=== PATIENT | male | born 1965 | race Caucasian/White ===

== ENCOUNTER 2016-10-10 18:05 | Inpatient (IN) | payer MEDICAID ==
[~2016-10-10] VITALS: Ht 180.3 cm; Wt 100.0 kg
[~2016-10-10 18:05] MED LIST: ESOM40CA PO; HYDR-882 PO; LEVO25TA2 PO; LISI5TAB7 PO; METO25TA35 PO
[2016-10-10] MEDS ORDERED: SODIUM CHLORIDE FLUSH 10ML SYR IVF ONE (19:00)
[2016-10-10] MEDS ORDERED: MORPHINE SULFATE 4 MG/ML, 1ML IVPush ONE (19:00)
[2016-10-10 19:12] LABS: HEMATOCRIT 38.4 % (39.2-51.8); HEMOGLOBIN 12.4 g/dL (13.7-18.0); WHITE BLOOD COUNT 10.8 x10^3/uL (3.4-10)
[2016-10-10 19:24] LABS: BLOOD UREA NITROGEN 11 mg/dL (7-18)
[2016-10-10 19:28] LABS: ASPARTATE AMINO TRANSFERASE 81 U/L (15-37)
[2016-10-10] MEDS ORDERED: POTASSIUM CHLORIDE 20 MEQ TAB.ER.PRT PO ONE (19:30)
[2016-10-10] MEDS ORDERED: POTASSIUM CHLORIDE 40 MEQ in SODIUM CHLORIDE 0.9% 500 ML IV ONE (19:30)
[2016-10-10] MEDS: MORPHINE SULFATE 4 MG/ML, 1ML IVPush PRN ×2 (20:50→23:05)
[2016-10-10] MEDS ORDERED: PANT20TA3 PO (22:13)
[2016-10-10] MEDS ORDERED: ONDANSETRON 2MG/ML, 2ML IVPush PRN (23:00)
[2016-10-10] MEDS ORDERED: DOCUSATE 100 MG CAPSULE PO PRN (23:00)
[2016-10-10] MEDS ORDERED: ENOXAPARIN 40 MG/0.4 ML SQ SCH (23:00)
[2016-10-10] MEDS ORDERED: INDOMETHACIN 50 MG CAPSULE PO ONE (23:00)
[2016-10-10] MEDS ORDERED: MAGNESIUM SULFATE PMX 2GM/50ML 50 ML IV ONE (23:00)
[2016-10-11] VITALS: BP 177/93
[2016-10-11] MEDS: LACTULOSE 10 GM/15 ML UDC PO SCH ×4 (01:02→20:01)
[2016-10-11] MEDS: HYDROmorphone 2 MG/ML, 1ML IVPush PRN ×4 (01:44→20:01)
[2016-10-11] MEDS: THIAMINE 100 MG, MVI ADULT 10 ML, FOLIC ACID 1 MG in D5%-0.9% NACL 1,000 ML IV SCH (01:45)
[2016-10-11 02:08] VITALS: BP 148/85
[2016-10-11 05:20] LABS: HEMATOCRIT 36.5 % (39.2-51.8); HEMOGLOBIN 11.9 g/dL (13.7-18.0); WHITE BLOOD COUNT 10.6 x10^3/uL (3.4-10)
[2016-10-11 05:27] LABS: BLOOD UREA NITROGEN 13 mg/dL (7-18)
[2016-10-11 05:38] LABS: ASPARTATE AMINO TRANSFERASE 74 U/L (15-37)
[2016-10-11] MEDS ORDERED: POTASSIUM CHLORIDE 40 MEQ in SODIUM CHLORIDE 0.9% 500 ML IV ONE (06:30)
[2016-10-11 07:23] VITALS: BP 136/87
[2016-10-11] MEDS: POTASSIUM CHLORIDE 20 MEQ PACKET PO SCH ×2 (08:00→09:34)
[2016-10-11] MEDS ORDERED: INDOMETHACIN 25 MG CAPSULE PO SCH (08:00)
[2016-10-11] MEDS ORDERED: MAGNESIUM SULFATE PMX 2GM/50ML 50 ML IV ONE ×2 (09:00→16:30)
[2016-10-11] MEDS: LISINOPRIL 5 MG TABLET PO SCH ×2 (09:35→12:31)
[2016-10-11] MEDS: PANTOPROZOLE 40MG TABLET PO SCH ×2 (09:35→12:31)
[2016-10-11] MEDS: METOPROLOL TARTRATE 25 MG TABLET PO SCH ×3 (09:35→20:01)
[2016-10-11] MEDS: LEVOTHYROXINE 25 MCG TABLET PO SCH ×2 (09:35→12:31)
[2016-10-11] MEDS ORDERED: methylPREDNISolone 4mg DOSE PACK PO SCH (11:00)
[2016-10-11 13:13] VITALS: BP 168/99
[2016-10-11] MEDS ORDERED: POTASSIUM CHLORIDE 20 MEQ TAB.ER.PRT PO SCH (17:00)
[2016-10-11] MEDS: OXYcodone IR 5MG TABLET PO PRN (17:11)
[2016-10-11 18:52] VITALS: BP 160/87
[2016-10-11] MEDS ORDERED: ONDANSETRON 2MG/ML, 2ML IVPush PRN (20:00)
[2016-10-11] MEDS: MAGNESIUM OXIDE 400 MG TABLET PO SCH (20:01)
[2016-10-12 01:32] VITALS: BP 139/88
[2016-10-12] MEDS: THIAMINE 100 MG, MVI ADULT 10 ML, FOLIC ACID 1 MG in D5%-0.9% NACL 1,000 ML IV SCH (02:08)
[2016-10-12 05:18] LABS: HEMATOCRIT 34.8 % (39.2-51.8); HEMOGLOBIN 11.2 g/dL (13.7-18.0); WHITE BLOOD COUNT 11.2 x10^3/uL (3.4-10)
[2016-10-12 05:38] LABS: ASPARTATE AMINO TRANSFERASE 61 U/L (15-37); BLOOD UREA NITROGEN 10 mg/dL (7-18)
[2016-10-12] MEDS: HYDROmorphone 2 MG/ML, 1ML IVPush PRN ×2 (06:03→10:07)
[2016-10-12 08:00] VITALS: BP 143/86
[2016-10-12] MEDS ORDERED: POTASSIUM CHLORIDE 40 MEQ in SODIUM CHLORIDE 0.9% 500 ML IV ONE (09:00)
[2016-10-12] MEDS: LACTULOSE 10 GM/15 ML UDC PO SCH (09:00)
[2016-10-12] MEDS: POLYETHYLENE GLYCOL 17 GM PACKET PO SCH ×2 (11:00→11:36)
[2016-10-12] MEDS: LEVOTHYROXINE 25 MCG TABLET PO SCH (11:36)
[2016-10-12] MEDS: PANTOPROZOLE 40MG TABLET PO SCH (11:36)
[2016-10-12] MEDS: LISINOPRIL 5 MG TABLET PO SCH (11:36)
[2016-10-12] MEDS: METOPROLOL TARTRATE 25 MG TABLET PO SCH (11:36)
[2016-10-12] MEDS: MAGNESIUM OXIDE 400 MG TABLET PO SCH (11:36)
[2016-10-12] MEDS: POTASSIUM CHLORIDE 20 MEQ TAB.ER.PRT PO SCH ×2 (11:37→17:13)
[2016-10-12 13:43] VITALS: BP 143/89
[2016-10-12] MEDS: OXYcodone IR 5MG TABLET PO PRN (14:37)
[2016-10-12 18:47] LABS: OCCBLD OBC PASS
[2016-10-12] MEDS ORDERED: ENOXAPARIN 40 MG/0.4 ML SQ SCH (23:00)
== END 2016-10-12 20:15 | disposition home or self-care (01) | DRG 554 ==
LOC: ED 19:15 → EDIP 22:29 → SUATTDRO 22:42 → 4EST 23:42 → 4WST 10-11 12:44
PROVIDERS: ADMIT Internal Medicine; ATTEND Internal Medicine
PROC: 0S9D3ZZ Drainage of Left Knee Joint, Percutaneous Approach (ICD-10-PCS; principal; 2016-10-10)
DX: M13.162 Monoarthritis, not elsewhere classified, left knee (principal); K22.2 Esophageal obstruction; I10 Essential (primary) hypertension; E03.9 Hypothyroidism, unspecified; E78.5 Hyperlipidemia, unspecified; E87.6 Hypokalemia; F10.10 Alcohol abuse, uncomplicated; K21.9 Gastro-esophageal reflux disease without esophagitis; K59.09 Other constipation; M10.00 Idiopathic gout, unspecified site; F17.220 Nicotine dependence, chewing tobacco, uncomplicated; G89.29 Other chronic pain; M25.462 Effusion, left knee; M54.5 Low back pain; M79.605 Pain in left leg; R26.2 Difficulty in walking, not elsewhere classified; R73.9 Hyperglycemia, unspecified
CPT/HCPCS: 36415; 74245; 80053; 82272; 82945; 83615; 83735; 84100; 84132; 84157; 84439; 84443; 84550; 85025; 85651; 85810; 86140; 87070; 87205; 89050; 89060; 93005; 96374; 96376; J1170; J1650; J2405; J3411; J3480; J7042; J7509; J3475; J7040

== ENCOUNTER 2016-10-12 22:25 | Emergency (ER) | payer MEDICAID ==
[~2016-10-12] VITALS: Ht 180.3 cm; Wt 95.5 kg
[~2016-10-12 22:25] MED LIST changes: +PANT20TA3 PO
[2016-10-12 22:27] VITALS: BP 157/122
[2016-10-12] MEDS ORDERED: KETOROLAC 30 MG/1 ML IM ONE (23:00)
[2016-10-12] MEDS ORDERED: POTASSIUM CHLORIDE 20 MEQ TAB.ER.PRT PO ONE (23:00)
== END 2016-10-13 00:09 | disposition home or self-care (01) ==
LOC: ED 22:49
DX: M13.10 Monoarthritis, not elsewhere classified, unspecified site (principal); M10.9 Gout, unspecified; I10 Essential (primary) hypertension; E03.9 Hypothyroidism, unspecified
CPT/HCPCS: 96372; 99283; J1885; J7512

== ENCOUNTER 2017-10-26 13:16 | Inpatient (IN) | payer MEDICAID ==
[~2017-10-26] VITALS: Ht 180.3 cm; Wt 85.2 kg
[2017-10-26] MEDS ORDERED: ATOR40TA78 PO (13:47)
[2017-10-26] MEDS ORDERED: SUCR1TAB PO (13:47)
[2017-10-26] MEDS ORDERED: LOSA50TA7 PO (13:47)
[2017-10-26] MEDS ORDERED: ALLO100T30 PO (13:47)
[2017-10-26] MEDS ORDERED: SODIUM CHLORIDE FLUSH 10ML SYR IVF ONE (14:00)
[2017-10-26 14:03] LABS: BASOPHILS # (AUTO) 0.03 x10^3/uL (0-0.1); BASOPHILS % (AUTO) 0 % (0-1); EOSINOPHILS # (AUTO) 0.11 x10^3/uL (0-0.4); EOSINOPHILS % (AUTO) 1 % (1-7); LYMPHOCYTES # (AUTO) 2.12 x10^3/uL (1-3.4); LYMPHOCYTES % (AUTO) 24 % (22-44); MD NO; MEAN CORPUSCULAR HEMOGLOBIN 26.6 pg (27.5-34.5); MEAN CORPUSCULAR HGB CONC 32.8 g/dL (33.2-36.2); MEAN CORPUSCULAR VOLUME 81.1 fL (81-97); MEAN PLATELET VOLUME 8.8 fL (7.4-10.4); MONOCYTES # (AUTO) 0.95 x10^3/uL (0.2-0.8); MONOCYTES % (AUTO) 11 % (2-9); NEUTROPHILS # (AUTO) 5.65 x10^3/uL (1.8-6.8); NEUTROPHILS % (AUTO) 64 % (42-75); PLATELET COUNT 197 x10^3/uL (130-400); RED BLOOD COUNT 4.37 x10^6/uL (4.38-5.82); RED CELL DISTRIBUTION WIDTH 21.9 % (9.4-14.8)
[2017-10-26 14:13] LABS: ALANINE AMINOTRANSFERASE 67 U/L (12-78); ALBUMIN 3.1 g/dL (3.4-5.0); ANION GAP 10 mmol/L (5-15); CALCIUM 7.4 mg/dL (8.5-10.1); CHLORIDE 101 mmol/L (98-107)
[2017-10-26 14:14] LABS: INTERNATIONAL NORMALIZED RATIO 1.03 (0.93-1.1); PROTHROMBIN TIME 10.7 Seconds (9.6-11.5)
[2017-10-26 14:18] LABS: ALKALINE PHOSPHATASE 251 U/L (45-117); BILIRUBIN,TOTAL 1.3 mg/dL (0.2-1.0); TOTAL PROTEIN 6.8 g/dL (6.4-8.2); TROPONIN I < 0.015 ng/mL (0.000-0.045)
[2017-10-26] MEDS ORDERED: SODIUM CHLORIDE 0.9% 1,000 ML IV ONE ×2 (14:57→15:13)
[2017-10-26] MEDS ORDERED: SODIUM CHLORIDE 0.9% 1,000ML IVBOLUS ONE (15:00)
[2017-10-26] MEDS ORDERED: SODIUM CHLORIDE FLUSH 10ML SYR IVF PRN (15:30)
[2017-10-26] MEDS ORDERED: NS + 20MEQ KCL 1,000 ML IV SCH (16:30)
[2017-10-26] MEDS ORDERED: MAGNESIUM SULFATE PMX 2GM/50ML 50 ML IV ONE (16:30)
[2017-10-26] MEDS ORDERED: LORazepam 1MG TABLET PO PRN (16:30)
[2017-10-26] MEDS: NICOTINE 7 MG/24 HR PATCH.TD24 TD SCH (16:30)
[2017-10-26] MEDS ORDERED: POTASSIUM CHLORIDE 20 MEQ TAB.ER.PRT PO ONE (16:30)
[2017-10-26] MEDS ORDERED: CALCIUM CARBONATE 500 MG TAB.CHEW PO PRN (16:30)
[2017-10-26 17:08] VITALS: BP 137/85
[2017-10-26 17:48] LABS: CULTURE INDICATED? YES; MICROSCOPIC INDICATED
[2017-10-26 18:08] LABS: HEMOGLOBIN A1C 5.1 % (4.2-6.3)
[2017-10-26] MEDS: HEPARIN 5,000 UNITS/ML, 1ML SQ SCH (18:14)
[2017-10-26] MEDS ORDERED: MAGNESIUM SULFATE PMX 4GM/100M 100 ML IV ONE (18:30)
[2017-10-26] MEDS: ALLOPURINOL 100 MG TABLET PO SCH (20:12)
[2017-10-26] MEDS: METOPROLOL TARTRATE 25 MG TABLET PO SCH (20:13)
[2017-10-26] MEDS: ACETAMINOPHEN 325 MG TABLET PO PRN (20:13)
[2017-10-26 20:15] VITALS: BP 137/91
[2017-10-26] MEDS ORDERED: ATORVASTATIN 40 MG TABLET PO SCH (21:00)
[2017-10-27 01:29] VITALS: BP 148/93
[2017-10-27] MEDS: HEPARIN 5,000 UNITS/ML, 1ML SQ SCH ×4 (01:50→20:11)
[2017-10-27 04:39] LABS: MEAN CORPUSCULAR HGB CONC 32.6 g/dL (33.2-36.2); MEAN CORPUSCULAR VOLUME 79.7 fL (81-97); MEAN PLATELET VOLUME 8.7 fL (7.4-10.4); PLATELET COUNT 145 x10^3/uL (130-400); RED BLOOD COUNT 3.57 x10^6/uL (4.38-5.82); RED CELL DISTRIBUTION WIDTH 22.3 % (9.4-14.8)
[2017-10-27 04:52] LABS: ALBUMIN 2.6 g/dL (3.4-5.0); ANION GAP 9 mmol/L (5-15); CALCIUM 6.8 mg/dL (8.5-10.1); CHLORIDE 104 mmol/L (98-107)
[2017-10-27 05:17] LABS: ALANINE AMINOTRANSFERASE 53 U/L (12-78); ALKALINE PHOSPHATASE 205 U/L (45-117); CHOL/HDL RATIO 4.3; CHOLESTEROL, TOTAL 113 mg/dL (140-239); CREATININE 1.91 mg/dL (0.7-1.3); FOLATE LEVEL 5.1 ng/mL (3.1-17.5); HDL CHOL % 23 % (26-37); HDL CHOLESTEROL (DIRECT) 26 mg/dL (40-60); LDL CHOLESTEROL,CALCULATED 60 mg/dL (54-169); LDL/HDL RATIO 2.3 (0.5-3.0); TOTAL PROTEIN 5.5 g/dL (6.4-8.2); TRIGLYCERIDES 137 mg/dL (50-200); VLDL CHOLESTEROL 27 mg/dL (0-25)
[2017-10-27 06:05] LABS: BASOPHILS # (AUTO) 0.04 x10^3/uL (0-0.1); BASOPHILS % (AUTO) 1 % (0-1); EOSINOPHILS % (AUTO) 2 % (1-7); LYMPHOCYTES # (AUTO) 1.87 x10^3/uL (1-3.4); LYMPHOCYTES % (AUTO) 37 % (22-44); MD SCAN; MONOCYTES # (AUTO) 0.61 x10^3/uL (0.2-0.8); MONOCYTES % (AUTO) 12 % (2-9); NEUTROPHILS # (AUTO) 2.45 x10^3/uL (1.8-6.8); NEUTROPHILS % (AUTO) 48 % (42-75)
[2017-10-27 07:09] VITALS: BP 157/99
[2017-10-27] MEDS ORDERED: POTASSIUM CHLORIDE 20 MEQ TAB.ER.PRT PO ONE (07:30)
[2017-10-27] MEDS: FOLIC ACID 1 MG TABLET PO SCH (07:49)
[2017-10-27] MEDS: THIAMINE 100MG TABLET PO SCH (07:49)
[2017-10-27] MEDS: MULTIVITAMIN 1 TABLET PO SCH (07:49)
[2017-10-27] MEDS: ALLOPURINOL 100 MG TABLET PO SCH ×2 (07:50→20:11)
[2017-10-27] MEDS: PANTOPRAZOLE 20MG TABLET PO SCH (07:50)
[2017-10-27] MEDS: METOPROLOL TARTRATE 25 MG TABLET PO SCH ×2 (07:50→19:14)
[2017-10-27] MEDS: NS + 40MEQ KCL 1,000 ML IV SCH ×2 (09:39→20:11)
[2017-10-27 13:15] VITALS: BP 135/83
[2017-10-27] MEDS: NICOTINE 7 MG/24 HR PATCH.TD24 TD SCH (16:30)
[2017-10-27 19:01] VITALS: BP_SYST 176; BP_SYST 189; BP_DIAS 101; BP_DIAS 111
[2017-10-27] MEDS: ACETAMINOPHEN 325 MG TABLET PO PRN (20:11)
[2017-10-27 20:15] VITALS: BP 151/80
[2017-10-27 21:03] LABS: OCCULT BLOOD NEGATIVE (NEGATIVE)
[2017-10-28 03:31] VITALS: BP 148/85
[2017-10-28 05:25] LABS: BASOPHILS # (AUTO) 0.05 x10^3/uL (0-0.1); BASOPHILS % (AUTO) 1 % (0-1); EOSINOPHILS # (AUTO) 0.12 x10^3/uL (0-0.4); EOSINOPHILS % (AUTO) 3 % (1-7); LYMPHOCYTES % (AUTO) 44 % (22-44); MD NO; MEAN CORPUSCULAR HEMOGLOBIN 26.9 pg (27.5-34.5); MEAN CORPUSCULAR HGB CONC 32.7 g/dL (33.2-36.2); MEAN CORPUSCULAR VOLUME 82.1 fL (81-97); MEAN PLATELET VOLUME 10.1 fL (7.4-10.4); MONOCYTES # (AUTO) 0.51 x10^3/uL (0.2-0.8); MONOCYTES % (AUTO) 12 % (2-9); NEUTROPHILS # (AUTO) 1.79 x10^3/uL (1.8-6.8); NEUTROPHILS % (AUTO) 41 % (42-75); PLATELET COUNT 133 x10^3/uL (130-400); RED BLOOD COUNT 3.34 x10^6/uL (4.38-5.82); RED CELL DISTRIBUTION WIDTH 22.1 % (9.4-14.8)
[2017-10-28 05:28] LABS: CHLORIDE 113 mmol/L (98-107)
[2017-10-28 05:38] LABS: ANION GAP 9 mmol/L (5-15); CALCIUM 6.8 mg/dL (8.5-10.1); CREATININE 1.42 mg/dL (0.7-1.3)
[2017-10-28 05:39] LABS: % IRON SATURATION 57 % (20-55); ALANINE AMINOTRANSFERASE 47 U/L (12-78); ALBUMIN 2.5 g/dL (3.4-5.0); ALKALINE PHOSPHATASE 191 U/L (45-117); BILIRUBIN,TOTAL 0.9 mg/dL (0.2-1.0); IRON LEVEL 153 mcg/dL (65-175); TOTAL IRON BINDING CAPACITY 268 mcg/dL (250-450); TOTAL PROTEIN 5.5 g/dL (6.4-8.2); TRANSFERRIN 224 mg/dL (200-360)
[2017-10-28] MEDS: NS + 40MEQ KCL 1,000 ML IV SCH (06:14)
[2017-10-28] MEDS ORDERED: POTASSIUM CHLORIDE 20 MEQ TAB.ER.PRT PO ONE (07:30)
[2017-10-28] MEDS: METOPROLOL TARTRATE 25 MG TABLET PO SCH ×2 (07:51→19:27)
[2017-10-28] MEDS: THIAMINE 100MG TABLET PO SCH (07:51)
[2017-10-28] MEDS: MULTIVITAMIN 1 TABLET PO SCH (07:51)
[2017-10-28] MEDS: PANTOPRAZOLE 20MG TABLET PO SCH (07:51)
[2017-10-28] MEDS: ALLOPURINOL 100 MG TABLET PO SCH ×2 (07:51→19:27)
[2017-10-28] MEDS: FOLIC ACID 1 MG TABLET PO SCH (07:52)
[2017-10-28 07:59] VITALS: BP 176/104
[2017-10-28] MEDS: HEPARIN 5,000 UNITS/ML, 1ML SQ SCH ×2 (10:00→17:16)
[2017-10-28] MEDS ORDERED: BUPIVACAINE/PF-EPI 0.5% 1:200K ONE (11:58)
[2017-10-28] MEDS ORDERED: MIDAZOLAM 1 MG/ML, 2ML ONE (12:14)
[2017-10-28] MEDS ORDERED: FENTANYL PF 250 MCG/5ML ONE (12:14)
[2017-10-28] MEDS ORDERED: BUPIVACAINE/PF-EPI 0.5% 1:200K INFIL ONE ×2 (12:46→13:05)
[2017-10-28] MEDS ORDERED: CEFAZOLIN 1,000 MG ONE (13:20)
[2017-10-28] MEDS ORDERED: NEOSTIGMINE 1 MG/ML, 10ML ONE (13:20)
[2017-10-28] MEDS ORDERED: GLYCOPYRROLATE 0.2MG/1ML, 5ML ONE (13:20)
[2017-10-28] MEDS ORDERED: SUCCINYLCHOLINE 20 MG/ML, 10ML ONE (13:20)
[2017-10-28] MEDS ORDERED: PROPOFOL 10 MG/ML, 20ML ONE (13:20)
[2017-10-28] MEDS ORDERED: ONDANSETRON 2MG/ML, 2ML ONE (13:20)
[2017-10-28] MEDS ORDERED: DEXAMETHASONE 4 MG/ML, 1ML ONE (13:20)
[2017-10-28] MEDS ORDERED: ROCURONIUM 10MG/ML,5ML ONE (13:20)
[2017-10-28] MEDS ORDERED: ONDANSETRON 2MG/ML, 2ML IV PRN (13:30)
[2017-10-28] MEDS ORDERED: LABETALOL 5MG/ML, 20ML IV PRN (13:30)
[2017-10-28] MEDS ORDERED: OXYcodone 5 MG/5 ML ORAL.SOL UDC ONE (13:30)
[2017-10-28] MEDS ORDERED: ONDANSETRON ODT 8 MG PO PRN (13:30)
[2017-10-28] MEDS ORDERED: PROMETHAZINE 25 MG/ML, 1ML IV PRN (13:30)
[2017-10-28] MEDS ORDERED: OXYcodone 5 MG/5 ML ORAL.SOL UDC PO PRN (13:30)
[2017-10-28] MEDS ORDERED: hydrALAzine 20 MG/ML, 1ML IV PRN ×2 (13:30→14:00)
[2017-10-28] MEDS ORDERED: HYDROmorphone 1 MG/ML, 1ML IV PRN ×2 (13:30→15:00)
[2017-10-28] MEDS ORDERED: FENTANYL PF 100 MCG/2ML ONE (13:30)
[2017-10-28] MEDS: FENTANYL PF 100 MCG/2ML IV PRN ×2 (13:35→13:45)
[2017-10-28] MEDS ORDERED: hydrALAzine 20 MG/ML, 1ML ONE (13:41)
[2017-10-28 14:00] VITALS: BP 160/100
[2017-10-28] MEDS: LOSARTAN 50MG TABLET PO SCH (15:26)
[2017-10-28] MEDS: HYDROcodone/APAP 5/325 TABLET PO PRN ×2 (15:26→22:17)
[2017-10-28] MEDS: NICOTINE 7 MG/24 HR PATCH.TD24 TD SCH (15:41)
[2017-10-28] MEDS: OXYcodone/APAP 5/325MG TABLET PO PRN (19:27)
[2017-10-28 20:40] VITALS: BP 147/89
[2017-10-29] MEDS: HEPARIN 5,000 UNITS/ML, 1ML SQ SCH ×2 (01:38→07:29)
[2017-10-29] MEDS: OXYcodone/APAP 5/325MG TABLET PO PRN ×2 (02:05→07:28)
[2017-10-29 03:49] VITALS: BP 146/83
[2017-10-29 04:54] LABS: MEAN CORPUSCULAR HEMOGLOBIN 26.3 pg (27.5-34.5); MEAN CORPUSCULAR VOLUME 82.4 fL (81-97); MEAN PLATELET VOLUME 9.5 fL (7.4-10.4); PLATELET COUNT 195 x10^3/uL (130-400); RED BLOOD COUNT 3.58 x10^6/uL (4.38-5.82); RED CELL DISTRIBUTION WIDTH 22.5 % (9.4-14.8)
[2017-10-29 05:03] LABS: CHLORIDE 108 mmol/L (98-107)
[2017-10-29 05:15] LABS: ALANINE AMINOTRANSFERASE 53 U/L (12-78); ALKALINE PHOSPHATASE 197 U/L (45-117); ANION GAP 10 mmol/L (5-15); BILIRUBIN,TOTAL 0.9 mg/dL (0.2-1.0); CALCIUM 7.6 mg/dL (8.5-10.1); TOTAL PROTEIN 6.3 g/dL (6.4-8.2)
[2017-10-29 05:44] LABS: BASOPHILS # (AUTO) 0.05 x10^3/uL (0-0.1); BASOPHILS % (AUTO) 1 % (0-1); EOSINOPHILS % (AUTO) 0 % (1-7); LYMPHOCYTES # (AUTO) 1.58 x10^3/uL (1-3.4); LYMPHOCYTES % (AUTO) 19 % (22-44); MD SCAN; MONOCYTES # (AUTO) 0.77 x10^3/uL (0.2-0.8); MONOCYTES % (AUTO) 9 % (2-9); NEUTROPHILS # (AUTO) 5.84 x10^3/uL (1.8-6.8); NEUTROPHILS % (AUTO) 71 % (42-75)
[2017-10-29] MEDS: METOPROLOL TARTRATE 25 MG TABLET PO SCH (07:29)
[2017-10-29] MEDS: THIAMINE 100MG TABLET PO SCH (07:29)
[2017-10-29] MEDS: ALLOPURINOL 100 MG TABLET PO SCH (07:29)
[2017-10-29] MEDS: MULTIVITAMIN 1 TABLET PO SCH (07:29)
[2017-10-29] MEDS: PANTOPRAZOLE 20MG TABLET PO SCH (07:29)
[2017-10-29] MEDS: FOLIC ACID 1 MG TABLET PO SCH (07:29)
[2017-10-29] MEDS: LOSARTAN 50MG TABLET PO SCH (07:30)
[2017-10-29 07:31] VITALS: BP 156/97
[2017-10-29] MEDS ORDERED: LOSARTAN 50MG TABLET PO SCH (09:00)
[2017-10-29] MEDS ORDERED: THIA100T67 PO (09:23)
[2017-10-29] MEDS ORDERED: OXYC1TAB7 PO (09:23)
[2017-10-29] MEDS ORDERED: MULT1TAB60 PO (09:23)
[2017-10-29] MEDS ORDERED: FOLI-17 PO (09:23)
[2017-10-29] MEDS ORDERED: POLY17PO5 PO (09:33)
== END 2017-10-29 10:30 | disposition home or self-care (01) | DRG 418 ==
LOC: ED 14:48 → EDIP 15:13 → 3NE 15:14
PROVIDERS: ADMIT Internal Medicine; ATTEND Internal Medicine
PROC: 0FT44ZZ Resection of Gallbladder, Percutaneous Endoscopic Approach (ICD-10-PCS; principal; 2017-10-28 12:30)
DX: K80.10 Calculus of gallbladder with chronic cholecystitis without obstruction (principal); K42.0 Umbilical hernia with obstruction, without gangrene; N17.9 Acute kidney failure, unspecified; I10 Essential (primary) hypertension; K76.0 Fatty (change of) liver, not elsewhere classified; E83.51 Hypocalcemia; E87.6 Hypokalemia; M10.9 Gout, unspecified; E78.5 Hyperlipidemia, unspecified; K21.9 Gastro-esophageal reflux disease without esophagitis; F10.10 Alcohol abuse, uncomplicated; E74.39 Other disorders of intestinal carbohydrate absorption; K59.00 Constipation, unspecified; R73.9 Hyperglycemia, unspecified; D64.9 Anemia, unspecified; Y90.9 Presence of alcohol in blood, level not specified; F17.200 Nicotine dependence, unspecified, uncomplicated; E66.3 Overweight; Z68.26 Body mass index [BMI] 26.0-26.9, adult; Z79.899 Other long term (current) drug therapy
CPT/HCPCS: 36415; 99285; J3490; 70450; 76700; 80053; 80061; 81001; 82272; 82330; 82436; 82570; 82607; 82728; 82746; 83036; 83540; 83550; 83735; 84100; 84133; 84300; 84443; 84466; 84484; 85025; 85610; 85730; 87086; 88302; 88304; 93005; 96360; C1729; G0378; J0690; J1100; J1644; J2250; J2405; J2704; J2710; J3010; J3480; J0330; J0360; J3475; J7030

== ENCOUNTER 2018-05-10 13:20 | Emergency (ER) | payer MEDICAID ==
[~2018-05-10] VITALS: Ht 180.3 cm; Wt 89.7 kg
[~2018-05-10 13:20] MED LIST changes: +ALLO100T30 PO; +ATOR40TA78 PO; +FOLI-17 PO; +HYDR-3653 PO; -HYDR-882 PO; +LOSA50TA14 PO; +MULT1TAB60 PO; +OXYC1TAB7 PO; +POLY17PO5 PO; +SUCR1TAB PO; +THIA100T67 PO
--- NOTE | 2018-05-10 14:20 | NUR ---
SET UP AND CHARGER: PT WALKED BACK FROM LOBBY TO ROOM. STEADY UPON AMBUALTION.
--- NOTE | 2018-05-10 14:28 | NUR ---
PT PRESENTING TO ER AFTER DOING COCAINE TUESDAY AND HAS SINCE BEEN EXPERIENCING DRY MOUTH, DIFFICULTY BREATHING AND SWALLOWING, APPETITE CHANGES AND DENTAL PAIN WITH GUM SWELLING. CONNECTED TO MONITORING, VENUS JANSEN. TO BEDSIDE FOR ASSESSMENT, AWAITING ORDERS AT THIS TIME. CALL LIGHT WITHIN REACH
[2018-05-10] MEDS ORDERED: LORazepam 1MG TABLET PO ONE (14:30)
[2018-05-10] MEDS ORDERED: LORazepam 1MG TABLET ONE (14:32)
--- NOTE | 2018-05-10 14:34 | NUR ---
PT MEDICATED PER APR. PT STATES UNABLE TO VOID AT THIS TIME FOR SAMPLE
[2018-05-10 14:53] LABS: BASOPHILS # (AUTO) 0.12 x10^3/uL (0-0.1); BASOPHILS % (AUTO) 2 % (0-1); EOSINOPHILS # (AUTO) 0.03 x10^3/uL (0-0.4); EOSINOPHILS % (AUTO) 0 % (1-7); LYMPHOCYTES # (AUTO) 1.06 x10^3/uL (1-3.4); LYMPHOCYTES % (AUTO) 15 % (22-44); MD NO; MEAN CORPUSCULAR HEMOGLOBIN 22.4 pg (27.5-34.5); MEAN CORPUSCULAR HGB CONC 31.4 g/dL (33.2-36.2); MEAN CORPUSCULAR VOLUME 71.1 fL (81-97); MEAN PLATELET VOLUME 7.5 fL (7.4-10.4); MONOCYTES # (AUTO) 0.67 x10^3/uL (0.2-0.8); MONOCYTES % (AUTO) 9 % (2-9); NEUTROPHILS # (AUTO) 5.23 x10^3/uL (1.8-6.8); NEUTROPHILS % (AUTO) 74 % (42-75); PLATELET COUNT 360 x10^3/uL (130-400); RED BLOOD COUNT 3.84 x10^6/uL (4.38-5.82); RED CELL DISTRIBUTION WIDTH 21.9 % (9.4-14.8)
--- NOTE | 2018-05-10 14:56 | NUR ---
SBAR report received from RN, Alanna Oliveira. Pt resting on gurney, aware of need for urine sample. Pt remains on monitors, VSS.
[2018-05-10 15:02] LABS: ALANINE AMINOTRANSFERASE 83 U/L (12-78); ALBUMIN 3.5 g/dL (3.4-5.0); ANION GAP 14 mmol/L (5-15); CALCIUM 8.8 mg/dL (8.5-10.1); CHLORIDE 108 mmol/L (98-107); CREATININE 0.86 mg/dL (0.7-1.3)
[2018-05-10 15:04] LABS: SALICYLATE LEVEL < 1.7 mg/dL (2.8-20.0)
[2018-05-10 15:05] LABS: ACETAMINOPHEN < 2 mcg/mL (10-30); ALKALINE PHOSPHATASE 122 U/L (45-117); BILIRUBIN,TOTAL 0.6 mg/dL (0.2-1.0)
--- NOTE | 2018-05-10 15:19 | NUR ---
Pt back to room from bathroom, urine sample collected and sent to lab.
[2018-05-10 16:10] LABS: AMPHETAMINE SCREEN, URINE Positive (Negative); BARBITURATE SCREEN, URINE Negative (Negative); BENZODIAZEPINE SCREEN, URINE Negative (Negative); CANNABINOID SCREEN, URINE Negative (Negative); COCAINE SCREEN, URINE Negative (Negative); METHADONE SCREEN, URINE Negative (Negative); OPIATE SCREEN, URINE Negative (Negative)
--- NOTE | 2018-05-10 16:15 | NUR ---
Pt resting on gurney, pillow and blanket provided. Pt encouraged to drink more water. Pt remains on all monitors, sinus taach noted, all other VS WNL.
--- NOTE | 2018-05-10 17:35 | NUR ---
Dr. Gregg at bedside to discuss ED findings and POC.
[2018-05-10 18:23] VITALS: BP 18/86
--- NOTE | 2018-05-10 18:24 | NUR ---
Patient/Caregiver given discharge instructions and they have confirmed that they understand the instructions. Patient ambulatory with steady gait.
== END 2018-05-10 18:24 | disposition home or self-care (01) ==
LOC: ED 16:23
DX: F15.10 Other stimulant abuse, uncomplicated (principal); I10 Essential (primary) hypertension; E78.5 Hyperlipidemia, unspecified; E03.9 Hypothyroidism, unspecified
CPT/HCPCS: 36415; 80053; 80307; 80329; 85025; 93005; 99284; G0480

== ENCOUNTER 2018-09-11 13:36 | Inpatient (IN) | payer MEDICAID ==
[~2018-09-11] VITALS: Ht 180.3 cm; Wt 88.6 kg
[2018-09-13 08:45] VITALS: BP 125/75
== END 2018-09-13 11:28 | disposition left against medical advice (07) | DRG 382 ==
LOC: ED 14:54 → EDIP 15:48 → 4EST 17:59
PROVIDERS: ADMIT Internal Medicine; ATTEND Internal Medicine
PROC: 0DB38ZX Excision of Lower Esophagus, Via Natural or Artificial Opening Endoscopic, Diagnostic (ICD-10-PCS; principal; 2018-09-13)
DX: K22.11 Ulcer of esophagus with bleeding (principal); E83.51 Hypocalcemia; G89.29 Other chronic pain; M54.5 Low back pain; E78.5 Hyperlipidemia, unspecified; I10 Essential (primary) hypertension; K21.9 Gastro-esophageal reflux disease without esophagitis; M10.9 Gout, unspecified; E83.42 Hypomagnesemia; E87.6 Hypokalemia; D50.9 Iron deficiency anemia, unspecified; K76.0 Fatty (change of) liver, not elsewhere classified; Z53.21 Procedure and treatment not carried out due to patient leaving prior to being seen by health care provider; R25.1 Tremor, unspecified; M19.90 Unspecified osteoarthritis, unspecified site; E03.9 Hypothyroidism, unspecified; E66.9 Obesity, unspecified; F10.10 Alcohol abuse, uncomplicated; F17.200 Nicotine dependence, unspecified, uncomplicated; K44.9 Diaphragmatic hernia without obstruction or gangrene; K59.00 Constipation, unspecified; R29.6 Repeated falls; Z68.27 Body mass index [BMI] 27.0-27.9, adult; Z86.010 Personal history of colon polyps; Z87.19 Personal history of other diseases of the digestive system
CPT/HCPCS: 36415; 70450; 71045; 80048; 80053; 81001; 82330; 82728; 83540; 83550; 83735; 84100; 84443; 84466; 84484; 85014; 85018; 85025; 85610; 85730; 87086; 87186; 88305; 93005; 96374; 96375; G0378; J2704; J3475; J3480; C9113; J2060; J7040

== ENCOUNTER 2019-06-30 17:06 | Inpatient (IN) | payer MEDICAID ==
[~2019-06-30] VITALS: Ht 180.3 cm; Wt 89.1 kg
[~2019-06-30 17:06] MED LIST changes: +LOSA100T14 PO; +PANT40TA3 PO
--- NOTE | 2019-06-30 17:34 | NUR ---
Pt is a poor historian with regards to medical and medication HX.
[2019-06-30 17:56] LABS: BASOPHILS # (AUTO) 0.04 x10^3/uL (0-0.1); BASOPHILS % (AUTO) 0 % (0-1); EOSINOPHILS # (AUTO) 0.17 x10^3/uL (0-0.4); EOSINOPHILS % (AUTO) 2 % (1-7); LYMPHOCYTES # (AUTO) 2.25 x10^3/uL (1-3.4); LYMPHOCYTES % (AUTO) 24 % (22-44); MD NO; MEAN CORPUSCULAR HEMOGLOBIN 28.9 pg (27.5-34.5); MEAN CORPUSCULAR HGB CONC 32.4 g/dL (33.2-36.2); MEAN CORPUSCULAR VOLUME 89.2 fL (81-97); MEAN PLATELET VOLUME 8.2 fL (7.4-10.4); MONOCYTES % (AUTO) 6 % (2-9); NEUTROPHILS % (AUTO) 67 % (42-75); PLATELET COUNT 120 x10^3/uL (130-400); RED BLOOD COUNT 4.83 x10^6/uL (4.38-5.82); RED CELL DISTRIBUTION WIDTH 19.3 % (9.4-14.8)
[2019-06-30 17:57] LABS: ALANINE AMINOTRANSFERASE 164 U/L (12-78); ALBUMIN 2.9 g/dL (3.4-5.0); ANION GAP 12 mmol/L (5-15); CALCIUM 6.9 mg/dL (8.5-10.1); CHLORIDE 91 mmol/L (98-107); CREATININE 0.79 mg/dL (0.7-1.3)
[2019-06-30 17:59] LABS: ALKALINE PHOSPHATASE 246 U/L (45-117); BILIRUBIN,TOTAL 2.4 mg/dL (0.2-1.0); TOTAL PROTEIN 6.2 g/dL (6.4-8.2)
[2019-06-30] MEDS ORDERED: ONDANSETRON 2MG/ML, 2ML IVPush ONE (18:00)
[2019-06-30] MEDS ORDERED: ONDANSETRON 2MG/ML, 2ML ONE (18:01)
[2019-06-30] MEDS ORDERED: ONDANSETRON ODT 4 MG ONE (18:05)
[2019-06-30] MEDS ORDERED: POTASSIUM CHLORIDE 20 MEQ TAB.ER.PRT PO ONE ×2 (18:30→23:30)
[2019-06-30] MEDS ORDERED: ONDANSETRON ODT 4 MG PO ONE (18:30)
[2019-06-30] MEDS ORDERED: POTASSIUM CHLORIDE 40 MEQ in SODIUM CHLORIDE 0.9% 500 ML IV ONE (18:30)
[2019-06-30] MEDS ORDERED: POTASSIUM CHLORIDE 20 MEQ TAB.ER.PRT ONE (18:50)
--- NOTE | 2019-06-30 19:02 | NUR ---
REPORT FROM VERENICE RIVERS ASSUMING CARE OF PT AT THIS TIME.
--- NOTE | 2019-06-30 19:08 | NUR ---
VS UPDATED AND IV POTASSIUM STARTED. PO POTASSIUM GIVEN. PT RESTING AND REQUESTING PAIN MED FOR CHRONIC BACK PAIN.
--- NOTE | 2019-06-30 19:08 | NUR ---
MD notified of blurry vision. Order received and medicated for nausea. Report provided to SILVESTRE George.
[2019-06-30] MEDS ORDERED: NS + 20MEQ KCL 1,000 ML IV SCH (19:21)
[2019-06-30] MEDS ORDERED: ONDANSETRON ODT 4 MG PO PRN (19:30)
[2019-06-30] MEDS ORDERED: BISACODYL 10 MG SUPP PR PRN (19:30)
[2019-06-30] MEDS ORDERED: MAGNESIUM SULFATE PMX 4GM/100M 100 ML IV ONE (19:30)
[2019-06-30] MEDS ORDERED: GUAIFENESIN/DM 200-20MG, 10ML UDC PO PRN (19:30)
[2019-06-30] MEDS ORDERED: POLYETHYLENE GLYCOL 17 GM PACKET PO PRN (19:30)
--- NOTE | 2019-06-30 19:56 | NUR ---
PT NOW BACK FROM IMAGING ALEXANDRA
--- NOTE | 2019-06-30 20:26 | NUR ---
REPORT TO GAVIOTA RIVERS PT READY FOR TRANSFER TO FLOOR ROOM 446 AT THIS TIME
[2019-06-30 21:52] VITALS: BP 157/105
[2019-06-30] MEDS: ALLOPURINOL 100 MG TABLET PO SCH (21:53)
[2019-06-30] MEDS: HEPARIN 5,000 UNITS/ML, 1ML SQ SCH (21:54)
[2019-06-30] MEDS: METOPROLOL TARTRATE 25 MG TAB PO SCH (21:54)
[2019-06-30] MEDS: OXYcodone IR 5MG TABLET PO PRN (21:54)
[2019-07-01 03:56] VITALS: BP 163/98
[2019-07-01] MEDS: OXYcodone IR 5MG TABLET PO PRN ×3 (03:57→16:56)
[2019-07-01 05:51] LABS: ALANINE AMINOTRANSFERASE 136 U/L (12-78); ALBUMIN 2.5 g/dL (3.4-5.0); ANION GAP 8 mmol/L (5-15); BASOPHILS # (AUTO) 0.04 x10^3/uL (0-0.1); BASOPHILS % (AUTO) 1 % (0-1); CALCIUM 6.9 mg/dL (8.5-10.1); CHLORIDE 96 mmol/L (98-107); CREATININE 0.81 mg/dL (0.7-1.3); EOSINOPHILS # (AUTO) 0.22 x10^3/uL (0-0.4); EOSINOPHILS % (AUTO) 3 % (1-7); LYMPHOCYTES # (AUTO) 2.26 x10^3/uL (1-3.4); LYMPHOCYTES % (AUTO) 31 % (22-44); MD NO; MEAN CORPUSCULAR HEMOGLOBIN 28.9 pg (27.5-34.5); MEAN CORPUSCULAR HGB CONC 32.6 g/dL (33.2-36.2); MEAN CORPUSCULAR VOLUME 88.6 fL (81-97); MEAN PLATELET VOLUME 8.1 fL (7.4-10.4); MONOCYTES # (AUTO) 0.52 x10^3/uL (0.2-0.8); MONOCYTES % (AUTO) 7 % (2-9); NEUTROPHILS # (AUTO) 4.35 x10^3/uL (1.8-6.8); NEUTROPHILS % (AUTO) 59 % (42-75); PLATELET COUNT 117 x10^3/uL (130-400); RED BLOOD COUNT 4.36 x10^6/uL (4.38-5.82); RED CELL DISTRIBUTION WIDTH 19.4 % (9.4-14.8)
[2019-07-01 05:53] LABS: ALKALINE PHOSPHATASE 203 U/L (45-117); BILIRUBIN,TOTAL 1.5 mg/dL (0.2-1.0); TOTAL PROTEIN 5.6 g/dL (6.4-8.2)
[2019-07-01] MEDS: HEPARIN 5,000 UNITS/ML, 1ML SQ SCH ×3 (06:02→20:17)
[2019-07-01] MEDS ORDERED: POTASSIUM CHLORIDE 40 MEQ in SODIUM CHLORIDE 0.9% 500 ML IV ONE ×2 (06:30→15:00)
[2019-07-01 06:57] LABS: INTERNATIONAL NORMALIZED RATIO 1.07 (0.93-1.1); PROTHROMBIN TIME 11.3 Seconds (9.6-11.5)
[2019-07-01] MEDS ORDERED: CALCIUM GLUCONATE 9.2 MEQ in SODIUM CHLORIDE 0.9% 100 ML IV ONE (07:00)
[2019-07-01 07:15] VITALS: BP 151/93
[2019-07-01] MEDS ORDERED: LOSARTAN 50MG TABLET ONE (07:46)
[2019-07-01] MEDS: ALLOPURINOL 100 MG TABLET PO SCH ×2 (07:55→20:14)
[2019-07-01] MEDS: POTASSIUM CHLORIDE 20 MEQ TAB.ER.PRT PO SCH ×2 (07:56→16:56)
[2019-07-01] MEDS: SENNA/DOCUSATE TABLET PO SCH (07:56)
[2019-07-01] MEDS: METOPROLOL TARTRATE 25 MG TAB PO SCH (07:59)
[2019-07-01] MEDS ORDERED: POTASSIUM CHLORIDE 20 MEQ TAB.ER.PRT PO ONE ×2 (09:00→15:00)
[2019-07-01] MEDS ORDERED: LOSARTAN 100 MG TAB PO SCH (09:00)
[2019-07-01] MEDS ORDERED: LORazepam 2 MG/ML, 1ML IV PRN ×3 (10:00)
[2019-07-01] MEDS ORDERED: LORazepam 0.5MG TABLET PO PRN (10:00)
[2019-07-01] MEDS ORDERED: LORazepam 1MG TABLET PO PRN ×2 (10:00)
[2019-07-01] MEDS: DIAZEPAM 5 MG TABLET PO SCH ×2 (10:07→22:44)
[2019-07-01] MEDS: THIAMINE 200 MG in SODIUM CHLORIDE 0.9% 50 ML IV SCH (10:07)
[2019-07-01 13:02] VITALS: BP 170/114
[2019-07-01 19:20] VITALS: BP 189/116
[2019-07-01] MEDS: NS + 20MEQ KCL 1,000 ML IV SCH (19:21)
[2019-07-01] MEDS: AMLODIPINE 5 MG TABLET PO SCH (20:14)
[2019-07-01] MEDS: CALCIUM CARBONATE 500 MG TAB.CHEW PO PRN (20:14)
[2019-07-01] MEDS: hydrALAzine 20 MG/ML, 1ML IV PRN (20:17)
[2019-07-01 22:49] VITALS: BP 189/106
[2019-07-02] VITALS (8 sets, daily range): BP systolic 151–193; BP diastolic 95–139
[2019-07-02] MEDS: hydrALAzine 20 MG/ML, 1ML IV PRN ×2 (00:20→20:56)
[2019-07-02] MEDS: OXYcodone IR 5MG TABLET PO PRN ×3 (00:20→21:51)
[2019-07-02] MEDS: HEPARIN 5,000 UNITS/ML, 1ML SQ SCH ×3 (05:17→20:25)
[2019-07-02] MEDS: CALCIUM CARBONATE 500 MG TAB.CHEW PO PRN (05:19)
[2019-07-02] MEDS ORDERED: PANT40TA5 PO (05:29)
[2019-07-02] MEDS ORDERED: SENN1TAB59 PO (05:29)
[2019-07-02 06:21] LABS: BASOPHILS # (AUTO) 0.04 x10^3/uL (0-0.1); BASOPHILS % (AUTO) 1 % (0-1); EOSINOPHILS # (AUTO) 0.21 x10^3/uL (0-0.4); EOSINOPHILS % (AUTO) 4 % (1-7); LYMPHOCYTES # (AUTO) 1.69 x10^3/uL (1-3.4); LYMPHOCYTES % (AUTO) 29 % (22-44); MD NO; MEAN CORPUSCULAR HGB CONC 32.4 g/dL (33.2-36.2); MEAN CORPUSCULAR VOLUME 89.4 fL (81-97); MEAN PLATELET VOLUME 8.6 fL (7.4-10.4); MONOCYTES # (AUTO) 0.49 x10^3/uL (0.2-0.8); MONOCYTES % (AUTO) 8 % (2-9); NEUTROPHILS # (AUTO) 3.42 x10^3/uL (1.8-6.8); NEUTROPHILS % (AUTO) 59 % (42-75); PLATELET COUNT 114 x10^3/uL (130-400); RED CELL DISTRIBUTION WIDTH 19.4 % (9.4-14.8)
[2019-07-02] MEDS: NS + 20MEQ KCL 1,000 ML IV SCH (06:28)
[2019-07-02 06:29] LABS: ALANINE AMINOTRANSFERASE 143 U/L (12-78); ALBUMIN 2.5 g/dL (3.4-5.0); ANION GAP 10 mmol/L (5-15); CALCIUM 7.4 mg/dL (8.5-10.1); CHLORIDE 104 mmol/L (98-107); CREATININE 0.56 mg/dL (0.7-1.3)
[2019-07-02 06:31] LABS: ALKALINE PHOSPHATASE 178 U/L (45-117); TOTAL PROTEIN 5.4 g/dL (6.4-8.2)
[2019-07-02] MEDS ORDERED: POTASSIUM CHLORIDE 40 MEQ in SODIUM CHLORIDE 0.9% 500 ML IV ONE (07:00)
[2019-07-02] MEDS: POTASSIUM CHLORIDE 20 MEQ TAB.ER.PRT PO SCH ×4 (08:14→20:26)
[2019-07-02] MEDS: ALLOPURINOL 100 MG TABLET PO SCH ×2 (08:15→20:26)
[2019-07-02] MEDS: SENNA/DOCUSATE TABLET PO SCH (08:15)
[2019-07-02] MEDS: AMLODIPINE 5 MG TABLET PO SCH ×2 (08:16→20:26)
[2019-07-02] MEDS ORDERED: ARTIFICIAL TEARS 15 DROP/ML BOTTLE EACHEYE PRN (09:30)
[2019-07-02] MEDS: DIAZEPAM 5 MG TABLET PO SCH ×2 (11:21→20:25)
[2019-07-02] MEDS: THIAMINE 200 MG in SODIUM CHLORIDE 0.9% 50 ML IV SCH (14:36)
[2019-07-03 02:00] VITALS: BP 145/88
[2019-07-03] MEDS: OXYcodone IR 5MG TABLET PO PRN ×3 (04:11→19:08)
[2019-07-03] MEDS: POTASSIUM CHLORIDE 20 MEQ TAB.ER.PRT PO SCH ×4 (05:52→20:16)
[2019-07-03] MEDS: HEPARIN 5,000 UNITS/ML, 1ML SQ SCH ×3 (05:52→20:06)
[2019-07-03 06:37] LABS: ALBUMIN 2.4 g/dL (3.4-5.0); ANION GAP 6 mmol/L (5-15); CALCIUM 7.9 mg/dL (8.5-10.1); CHLORIDE 108 mmol/L (98-107)
[2019-07-03 06:40] LABS: ALANINE AMINOTRANSFERASE 142 U/L (12-78); ALKALINE PHOSPHATASE 172 U/L (45-117); CREATININE 0.56 mg/dL (0.7-1.3); TOTAL PROTEIN 5.2 g/dL (6.4-8.2)
[2019-07-03 06:58] VITALS: BP 169/90
[2019-07-03] MEDS ORDERED: MAGNESIUM SULFATE PMX 4GM/100M 100 ML IV ONE (08:30)
[2019-07-03] MEDS ORDERED: POTASSIUM CHLORIDE 40 MEQ in SODIUM CHLORIDE 0.9% 500 ML IV ONE (08:30)
[2019-07-03] MEDS: SENNA/DOCUSATE TABLET PO SCH (09:00)
[2019-07-03] MEDS: THIAMINE 200 MG in SODIUM CHLORIDE 0.9% 50 ML IV SCH (09:00)
[2019-07-03] MEDS: AMLODIPINE 5 MG TABLET PO SCH ×2 (09:28→20:16)
[2019-07-03] MEDS: DIAZEPAM 5 MG TABLET PO SCH ×2 (09:28→22:07)
[2019-07-03] MEDS: ALLOPURINOL 100 MG TABLET PO SCH ×2 (09:28→20:16)
[2019-07-03] MEDS: LOSARTAN 50MG TABLET PO SCH (09:29)
[2019-07-03 12:53] VITALS: BP 154/91
[2019-07-03 16:23] VITALS: BP 167/104
[2019-07-03 17:43] VITALS: BP 149/91
[2019-07-03] MEDS: CALCIUM CARBONATE 500 MG TAB.CHEW PO PRN (20:06)
[2019-07-03 20:13] VITALS: BP 140/86
[2019-07-04 01:20] VITALS: BP 148/91
[2019-07-04] MEDS: OXYcodone IR 5MG TABLET PO PRN ×2 (04:29→11:47)
[2019-07-04] MEDS: HEPARIN 5,000 UNITS/ML, 1ML SQ SCH ×3 (04:32→20:57)
[2019-07-04] MEDS: POTASSIUM CHLORIDE 20 MEQ TAB.ER.PRT PO SCH (05:13)
[2019-07-04 05:58] LABS: CHLORIDE 108 mmol/L (98-107)
[2019-07-04 06:20] LABS: ALANINE AMINOTRANSFERASE 161 U/L (12-78); ALBUMIN 2.7 g/dL (3.4-5.0); ALKALINE PHOSPHATASE 188 U/L (45-117); ANION GAP 9 mmol/L (5-15); BILIRUBIN,TOTAL 1.2 mg/dL (0.2-1.0); CALCIUM 8.2 mg/dL (8.5-10.1); CREATININE 0.59 mg/dL (0.7-1.3); TOTAL PROTEIN 5.8 g/dL (6.4-8.2)
[2019-07-04] MEDS ORDERED: MAGNESIUM SULFATE/D5W 100 ML IV ONE (07:00)
[2019-07-04 07:47] VITALS: BP 154/87
[2019-07-04] MEDS: THIAMINE 200 MG in SODIUM CHLORIDE 0.9% 50 ML IV SCH (09:57)
[2019-07-04] MEDS: ALLOPURINOL 100 MG TABLET PO SCH ×2 (09:58→20:57)
[2019-07-04] MEDS: AMLODIPINE 5 MG TABLET PO SCH ×2 (09:58→20:57)
[2019-07-04] MEDS: DIAZEPAM 5 MG TABLET PO SCH ×2 (09:58→21:34)
[2019-07-04] MEDS: SENNA/DOCUSATE TABLET PO SCH (09:58)
[2019-07-04] MEDS: LOSARTAN 50MG TABLET PO SCH (09:58)
[2019-07-04] MEDS ORDERED: CHLORTHALIDONE 25 MG TABLET PO SCH (11:00)
[2019-07-04] MEDS: SPIRONOLACTONE 50 MG TABLET PO SCH (11:47)
[2019-07-04 13:44] VITALS: BP 133/85
[2019-07-04 17:09] VITALS: BP 125/83
[2019-07-04] MEDS ORDERED: ACETAMINOPHEN 325 MG TABLET PO PRN (17:30)
[2019-07-04 19:46] VITALS: BP 154/91
[2019-07-05 01:28] VITALS: BP 144/97
[2019-07-05] MEDS: HEPARIN 5,000 UNITS/ML, 1ML SQ SCH (05:39)
[2019-07-05 07:05] LABS: ANION GAP 10 mmol/L (5-15); CALCIUM 8.3 mg/dL (8.5-10.1); CHLORIDE 111 mmol/L (98-107); CREATININE 0.72 mg/dL (0.7-1.3)
[2019-07-05 08:05] VITALS: BP 151/101
[2019-07-05] MEDS: THIAMINE 200 MG in SODIUM CHLORIDE 0.9% 50 ML IV SCH (08:47)
[2019-07-05] MEDS: LOSARTAN 50MG TABLET PO SCH (08:48)
[2019-07-05] MEDS: SENNA/DOCUSATE TABLET PO SCH (08:48)
[2019-07-05] MEDS: AMLODIPINE 5 MG TABLET PO SCH (08:48)
[2019-07-05] MEDS: ALLOPURINOL 100 MG TABLET PO SCH (08:48)
[2019-07-05] MEDS: SPIRONOLACTONE 50 MG TABLET PO SCH (08:49)
[2019-07-05] MEDS: OXYcodone IR 5MG TABLET PO PRN (08:53)
[2019-07-05] MEDS ORDERED: PANT40TA5 PO (09:38)
[2019-07-05] MEDS ORDERED: SUCR1TAB PO (09:38)
[2019-07-05] MEDS ORDERED: AMLO-150 PO (09:38)
[2019-07-05] MEDS ORDERED: SPIR50TA PO (09:38)
[2019-07-05] MEDS ORDERED: ATOR40TA78 PO (09:38)
[2019-07-05] MEDS ORDERED: LOSA100T14 PO (09:38)
[2019-07-05] MEDS ORDERED: hydralazine PO (09:38)
[2019-07-05] MEDS ORDERED: ALLO100T30 PO (09:38)
[2019-07-05] MEDS ORDERED: HYDR-3343 PO (09:38)
[2019-07-05] MEDS ORDERED: SENN1TAB59 PO (09:38)
[2019-07-05] MEDS ORDERED: OXYC5TAB3 PO (09:38)
== END 2019-07-05 12:01 | disposition home or self-care (01) | DRG 189 ==
LOC: ED 19:34 → EDIP 19:40 → 4NE 21:19 → 4WST 07-03 15:48 → DCLOUNGE 07-05 11:51
PROVIDERS: ADMIT Internal Medicine; ATTEND Hospitalist
DX: J96.90 Respiratory failure, unspecified, unspecified whether with hypoxia or hypercapnia (principal); D69.6 Thrombocytopenia, unspecified; E03.9 Hypothyroidism, unspecified; E78.5 Hyperlipidemia, unspecified; E83.42 Hypomagnesemia; E87.6 Hypokalemia; F17.200 Nicotine dependence, unspecified, uncomplicated; I10 Essential (primary) hypertension; M10.9 Gout, unspecified; G89.29 Other chronic pain; K21.9 Gastro-esophageal reflux disease without esophagitis; M54.9 Dorsalgia, unspecified; R74.0 Nonspecific elevation of levels of transaminase and lactic acid dehydrogenase [LDH]; Z82.49 Family history of ischemic heart disease and other diseases of the circulatory system; Z03.818 Encounter for observation for suspected exposure to other biological agents ruled out
CPT/HCPCS: 36415; 70551; 71045; 76700; 80048; 80053; 80074; 80307; 82088; 83605; 83735; 84100; 84132; 84145; 84244; 85025; 85610; 93005; 93975; 95819; 99291; G0378; J0610; J1644; J3411; J3480; Q0162; J0360; J3475; J7040; U0001-CS